=== PATIENT | male | born 1995 | race Asian ===

== ENCOUNTER 2017-12-11 11:09 | Emergency (ER) | payer SELFPAY ==
--- NOTE | 2017-12-11 11:29 | EDPHY ---
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 Him and his roommate were making Halloween costumes when he accidentally cut his finger with a knife. He reports that he felt mild immediate pain but denies any pain at the time. Reports tetanus is current. Denies decreased range of motion, paresthesias, numbness, weakness. Modifying Factors: Direct pressure Comment: ROS: A comprehensive 10 system review of systems is otherwise negative aside from elements mentioned in the history of present illness. MEDICAL/SURGICAL/SOCIAL HISTORY: Medical history: Generally healthy. Does not take any regular medications. Surgical history: Denies Social history: Student at [employer]. Nonsmoker CONSTITUTIONAL: Polite and cooperative young adult male awake and alert, no obvious distress HEENT: Atraumatic and normocephalic. NECK: supple EXTREMITIES: 2/2 pulses, strength 5/5, left pointer finger between the PIP and MCP joint shows 2 cm, superficial, simple, laceration. DIP/PIP/MCP flexion/ extension intact with good light touch sensation. no deformities, no clubbing, no cyanosis or edema. NEUROLOGICAL: no focal neuro deficits. GCS 15. Light touch sensation intact. SKIN: Warm and dry, no erythema. no rash. Good capillary refill. Source: Patient Exam Limitations: No limitations - Personal History Current Tetanus Diphtheria and Acellular Pertussis (TDAP): Yes - Medical/Surgical History Hx Asthma: No Hx Chronic Respiratory Disease: No Hx Diabetes: No Hx Cardiac Disease: No Hx Renal Disease: No Hx Cirrhosis: No Hx Alcoholism: No Hx HIV/AIDS: No Hx Splenectomy or Spleen Trauma: No Other PMH: denies - Social History Smoking Status: Never smoked Constitutional: Initial Vital Signs Temperature (C) 36.7 C 12/11/17 11:24 Heart Rate 73 12/11/17 11:24 Respiratory Rate 18 12/11/17 11:24 Blood Pressure 158/78 H 12/11/17 11:24 O2 Sat (%) 98 12/11/17 11:24 O2 Delivery Mode Room Air Allergies/Adverse Reactions: No Known Allergies Allergy (Unverified 12/11/17 11:24) Home Medications: Medication Instructions Recorded NK [No Known Home Meds] 12/11/17 Medical Decision Making Procedures: Procedure: Laceration repair. Verbal consent was obtained from the patient. The 2 cm, simple, superficial laceration on the left pointer finger was anesthetized in the usual fashion using 2 mL of 1% lidocaine without epinephrine. The wound was irrigated, draped and explored to its base with a gloved finger. There were no deep structures involved. No tendon injury was identified. The wound was repaired with #4, 5 0 Prolene in simple interrupted pattern. Good hemostasis was achieved and patient tolerated procedure well. Clean sterile dressing applied. The procedure was performed by myself. ED Course/Re-evaluation: Tetanus is current. Local anesthesia provided, irrigated copiously, laceration repaired, clean sterile dressing applied. Written and verbal wound care instructions provided No signs of neurovascular compromise/tenting of skin/compartment syndrome/ extremities and joints examined above and below area of concern and are neurovascularly intact/tendon injury. This patient was seen under the supervision of my secondary supervising physician. I evaluated care for this patient independently. Discussed this patient with Dr. Dias. Differential Diagnosis: Differential diagnosis includes but is not limited to laceration, nerve injury, tendon injury, foreign body. Departure - Departure Disposition: Home, Routine, Self-Care Clinical Impression: Laceration of left index finger w/o foreign body w/o damage to nail Qualifiers: Encounter type: initial encounter Qualified Code(s): S61.211A - Laceration without foreign body of left index finger without damage to nail, initial encounter Condition: Good Instructions: Care For Your Stitches (ED), Laceration (ED) Additional Instructions: Keep the dressing dry and in place for 48 hours. After 48 hours, you may remove the dressing; wash the site daily with mild soap and water; then pat dry. Keep covered with clean sterile dressing until fully healed. Wound Care Follow-Up: Removal of sutures in [ 7-10 ] days. Suture removal is complimentary in uncomplicated cases. Infection or abnormal findings would require reevaluation by the MD. In that case, you may be billed. Return to the ER immediately if you experience new or worsening pain, discoloration, numbness, tingling, or any other symptoms that concern you. Referrals: GLORIA Pitts,. [Clinic] - As per Instructions
[2017-12-11 12:27] VITALS: BP 132/78
== END 2017-12-11 12:27 | disposition home or self-care (01) ==
PROC: 0HQGXZZ Repair Left Hand Skin, External Approach (ICD-10-PCS; principal; 2017-12-11)
DX: S61.211A Laceration without foreign body of left index finger without damage to nail, initial encounter (principal); W26.0XXA Contact with knife, initial encounter; Y93.89 Activity, other specified; Y92.9 Unspecified place or not applicable; Y99.9 Unspecified external cause status